=== PATIENT | female | born 1990 | race Two or more races ===

== ENCOUNTER → 2021-10-04 | Outpatient (CLI) | payer BC ==
[2021-10-04 08:58] LABS: Basophils # (auto) 0.1 10 ^3/uL (0-0.2); Basophils % (auto) 0.7 % (0.0-2.0); Eosinophils # (auto) 0.1 10 ^3/uL (0-0.8); Hematocrit 37.4 % (36.0-46.0); Hemoglobin 12.7 g/dL (12.2-16.2); Lymphocytes # (auto) 1.3 10 ^3/uL (0.4-5.4); Lymphocytes % (auto) 15.4 % (10.0-50.0); Mean Corpuscular Hemoglobin 31.8 pg (28.0-32.0); Mean Corpuscular Hgb Conc. 34.1 g/dL (32.0-36.0); Mean Corpuscular Volume 93.3 fL (80.0-100.0); Monocytes # (auto) 0.4 10 ^3/uL (0-1.3); Monocytes % (auto) 4.8 % (0.0-12.0); Neutrophils # (auto) 6.7 10 ^3/uL (1.6-8.6); Neutrophils % (auto) 78.1 % (37.0-80.0); Red Blood Cells 4.01 10^6/uL (4.0-5.20); Red Cell Distribution Width 13.8 % (11.8-14.3); White Blood Cell 8.6 10^3/uL (4.4-10.8)
== END | disposition home or self-care (01) ==
LOC: LAB 08:15
PROVIDERS: ATTEND Obstetrics & Gynecology
DX: Z34.00 Encounter for supervision of normal first pregnancy, unspecified trimester (principal)
CPT/HCPCS: 36415; 82951; 85025

== ENCOUNTER 2021-12-15 10:30 | Observation (INO) | payer BC ==
[2021-12-20] MEDS ORDERED: PREN-96 PO (09:23)
== END 2021-12-15 12:05 | disposition home or self-care (01) ==
LOC: LDRP 10:30
PROVIDERS: ADMIT Obstetrics & Gynecology; ATTEND Obstetrics & Gynecology
DX: O36.5930 Maternal care for other known or suspected poor fetal growth, third trimester, not applicable or unspecified (principal); Z3A.38 38 weeks gestation of pregnancy
CPT/HCPCS: 59025; 76818; 81002; 94760; G0378

== ENCOUNTER 2021-12-18 09:30 | Observation (INO) | payer BC | END 2021-12-18 10:39 | disposition home or self-care (01) | LOC: LDRP 09:30 | PROVIDERS: ADMIT Obstetrics & Gynecology; ATTEND Obstetrics & Gynecology | DX: O36.5930 Maternal care for other known or suspected poor fetal growth, third trimester, not applicable or unspecified (principal); Z3A.38 38 weeks gestation of pregnancy | CPT/HCPCS: 59025; 76818; 81002; 94760; G0378 ==

== ENCOUNTER 2021-12-20 09:06 | Observation (INO) | payer BC ==
[~2021-12-20] VITALS: Ht 167.6 cm; Wt 70.8 kg
[2021-12-20] MEDS ORDERED: PREN-96 PO ×2 (09:23)
== END 2021-12-20 11:54 | disposition home or self-care (01) ==
LOC: LDRP 09:06
PROVIDERS: ADMIT Obstetrics & Gynecology; ATTEND Obstetrics & Gynecology
DX: O42.92 Full-term premature rupture of membranes, unspecified as to length of time between rupture and onset of labor (principal); O62.9 Abnormality of forces of labor, unspecified; Z3A.39 39 weeks gestation of pregnancy
CPT/HCPCS: 59025; 76818; 81002; 84112; 94760; G0378; Q0114

== ENCOUNTER 2021-12-21 11:22 | Inpatient (IN) | payer BC ==
[~2021-12-21] VITALS: Ht 160 cm; Wt 70.8 kg
[~2021-12-21 11:22] MED LIST: PREN-96 PO
[2021-12-21] MEDS ORDERED: METHYLERGONOVINE MALEATE 0.2 MG/ML AMP IM PRN (12:00)
[2021-12-21] MEDS ORDERED: BUTORPHANOL TARTRATE 2 MG/1 ML VIAL IV PRN ×2 (12:00)
[2021-12-21] MEDS ORDERED: miSOPROStol 100 mcg TAB SL PRN (12:00)
[2021-12-21] MEDS ORDERED: WITCH HAZEL-GLYCERIN PAD TOP PRN (12:00)
[2021-12-21] MEDS ORDERED: LIDOCAINE 2%HCL (LOCAL ANESTH.) INJ 20ML MDV IJ PRN (12:00)
[2021-12-21] MEDS ORDERED: PROMETHAZINE HCL 25 MG/ML 1ML IV PRN (12:00)
[2021-12-21] MEDS ORDERED: CARBOPROST TROMETHAMINE 250 MCG/1ML VIAL IM PRN (12:00)
[2021-12-21] MEDS ORDERED: DERMOPLAST 60ML BOTTLE TOP PRN (12:00)
[2021-12-21] MEDS ORDERED: miSOPROStol 100 mcg TAB PR PRN (12:00)
[2021-12-21] MEDS ORDERED: PHISODERM TOP SOLN 240ML BTL TOP PRN (12:00)
[2021-12-21] MEDS ORDERED: NALBUPHINE HCL 10 MG/1ml INJECTION IV PRN (12:00)
[2021-12-21] MEDS ORDERED: TRANEXAMIC ACID 1,000 MG in SODIUM CHL 0.9% 100 ML IV ONE (12:00)
[2021-12-21] MEDS: LACTATED RINGER'S 1,000 ML IV SCH ×2 (12:36→17:49)
[2021-12-21 12:45] LABS: Basophils # (auto) 0 10 ^3/uL (0-0.2); Basophils % (auto) 0.1 % (0.0-2.0); Eosinophils # (auto) 0 10 ^3/uL (0-0.8); Eosinophils % (auto) 0.1 % (0.0-7.0); Hematocrit 39.7 % (36.0-46.0); Hemoglobin 13.5 g/dL (12.2-16.2); Lymphocytes % (auto) 8.4 % (10.0-50.0); Mean Corpuscular Hemoglobin 30.9 pg (28.0-32.0); Mean Corpuscular Hgb Conc. 34.1 g/dL (32.0-36.0); Mean Corpuscular Volume 90.8 fL (80.0-100.0); Monocytes # (auto) 0.5 10 ^3/uL (0-1.3); Neutrophils # (auto) 10.5 10 ^3/uL (1.6-8.6); Neutrophils % (auto) 87.4 % (37.0-80.0); Nucleated Red Blood Cells % 0.1 %; Red Blood Cells 4.37 10^6/uL (4.0-5.20)
[2021-12-21] MEDS ORDERED: LACT. RINGERS/OXYTOCIN 20UNITS 500 ML IV ONE ×2 (12:45→13:15)
[2021-12-21 12:51] LABS: Potassium 3.7 mmol/L (3.5-5.1)
[2021-12-21 12:51] LABS: Alcohol, Urine < 3.0 mg/dL (0-10); Amphetamine Screen, Urine NEGATIVE (NEGATIVE); Barbiturate Scree,Urine NEGATIVE (NEGATIVE); Benzodiazephine Screen, Urine NEGATIVE (NEGATIVE); Cannabinoid Screen, Urine NEGATIVE (NEGATIVE); Cocaine Screen, Urine NEGATIVE (NEGATIVE); Opiate Scree,Urine NEGATIVE (NEGATIVE); Phencyclidine Screen, Urine NEGATIVE (NEGATIVE)
[2021-12-21 12:52] LABS: Urine Bacteria FEW /hpf (None Seen); Urine Blood 2+ /uL (Negative); Urine Specific Gravity 1.009 (1.001-1.035); Urine WBC 43 /hpf (0 - 5)
[2021-12-21 12:57] LABS: Albumin 3.1 g/dL (3.4-5.0); BUN/Creatinine Ratio 11.1; Bilirubin, Total 0.8 mg/dL (0.2-1.0); Calcium 9.2 mg/dL (8.5-10.1); Total Protein 6.4 g/dL (6.4-8.2)
[2021-12-21 13:23] LABS: INR 0.93 (0.9-1.15); Partial Thromboplastin Time 31.8 sec (23.6-33.0)
[2021-12-21] MEDS ORDERED: LACTATED RINGER'S 1,000 ML IV ONE (13:45)
[2021-12-21] MEDS ORDERED: fentaNYL CITRATE 100 MCG/2 ML VL IV ONE (13:45)
[2021-12-21] MEDS ORDERED: ePHEDrine SULFATE 50 MG/ML AMP IV ONE (13:45)
[2021-12-21] MEDS ORDERED: ROPIVACAINE HCL 200 ML EPI SCH (13:45)
[2021-12-21] MEDS ORDERED: NALOXONE HCL 0.4 MG/ML VIAL IV ONE (13:45)
[2021-12-21] MEDS ORDERED: LIDOCAINE HCL 2 %PF INJ 10ML AMP IJ ONE (13:45)
[2021-12-21] MEDS ORDERED: ACETAMINOPHEN 325 MG TAB PO PRN (18:00)
[2021-12-21] MEDS ORDERED: IBUPROFEN 600 MG TAB PO PRN (18:00)
[2021-12-21] MEDS: DOCUSATE SOD 100 MG CAP PO SCH (22:20)
[2021-12-21] MEDS: IBUPROFEN 800 MG TAB PO SCH (22:20)
[2021-12-21 22:52] VITALS: BP 103/51
[2021-12-22 03:30] VITALS: BP 93/51
[2021-12-22] MEDS: IBUPROFEN 800 MG TAB PO SCH ×4 (04:33→17:53)
[2021-12-22 06:07] LABS: RPR Non Reactive (Non Reactive)
[2021-12-22 07:10] VITALS: BP 93/51
[2021-12-22] MEDS ORDERED: LACT. RINGER'S W OXYTOCIN 20UNITS/1000 ML IV SCH ×2 (10:00)
[2021-12-22 11:00] VITALS: BP 95/69
[2021-12-22 18:40] VITALS: BP 117/69
[2021-12-22] MEDS: DOCUSATE SOD 100 MG CAP PO SCH (22:31)
[2021-12-22 22:38] VITALS: BP 101/55
[2021-12-23 03:10] VITALS: BP 110/57
[2021-12-23] MEDS: IBUPROFEN 800 MG TAB PO SCH ×2 (05:56)
[2021-12-23 07:15] VITALS: BP 105/56
[2021-12-23] MEDS ORDERED: DOCU100C10 PO (07:53)
[2021-12-23] MEDS ORDERED: IBU600T PO (07:53)
[2021-12-23 10:44] VITALS: BP 102/60
== END 2021-12-23 11:55 | disposition home or self-care (01) | DRG 807 ==
LOC: LDRP 11:22 → OBSVTOIN 11:51 → LDRP 12:03
PROVIDERS: ADMIT Obstetrics & Gynecology; ATTEND Obstetrics & Gynecology
PROC: 10E0XZZ Delivery of Products of Conception, External Approach (ICD-10-PCS; principal; 2021-12-21)
PROC: 0HQ9XZZ Repair Perineum Skin, External Approach (ICD-10-PCS; 2021-12-21)
PROC: 3E0R3BZ Introduction of Anesthetic Agent into Spinal Canal, Percutaneous Approach (ICD-10-PCS; 2021-12-21)
PROC: 00HU33Z Insertion of Infusion Device into Spinal Canal, Percutaneous Approach (ICD-10-PCS; 2021-12-21)
PROC: 0UQGXZZ Repair Vagina, External Approach (ICD-10-PCS; 2021-12-21)
DX: O71.4 Obstetric high vaginal laceration alone (principal); Z37.0 Single live birth; Z3A.39 39 weeks gestation of pregnancy; Z20.822 Contact with and (suspected) exposure to COVID-19
CPT/HCPCS: 36415; 59025; 59409; 62282; 80053; 80307; 81001; 85025; 85610; 85730; 86592; 86850; 86900; 86901; 87426; 94760; 96360; 96361; 96366; G0378